=== PATIENT | female | born 1970 | race Caucasian/White ===

== ENCOUNTER 2023-07-20 01:31 | Emergency (ER) | payer BC ==
[2023-07-20] MEDS ORDERED: HYDROmorphone 1 MG/ML Syringe IVPUSH ONE (01:52)
[2023-07-20] MEDS ORDERED: Ondansetron 4 MG/2 ML SDV IVPUSH ONE (01:52)
[2023-07-20] MEDS ORDERED: Sodium Chloride 0.9% 1,000 ML IV ONE (01:52)
[2023-07-20] MEDS ORDERED: Sodium Chloride 0.9% 10 ML Syringe FLUSH PRN (01:52)
[2023-07-20 02:04] LABS: BASOPHILS PERCENT AUTO 0.1 % (0.0-1.0); EOSINOPHILS PERCENT AUTO 0.1 % (1.0-3.0); HEMATOCRIT 43.1 % (37.0-47.0); LYMPHOCYTES PERCENT AUTO 25.4 % (20.5-50.1); MEAN CORPUSCULAR HEMOGLOBIN 27.9 pg (27.0-34.0); MEAN CORPUSCULAR HGB CONC 32.5 g/dL (33.0-35.0); MEAN CORPUSCULAR VOLUME 85.9 fL (80-100); MONOCYTES PERCENT AUTO 9.7 % (2-8); NEUTROPHILS PERCENT AUTO 64.7 % (42.2-75.2); PLATELET COUNT,PLT 252 10^3/uL (150-450); RED BLOOD CELL COUNT 5.02 10^6/uL (4.2-5.4); WHITE BLOOD CELL COUNT,WBC 6.9 10^3/uL (5.0-10.0)
[2023-07-20 02:27] LABS: A/G RATIO 0.9; ALANINE AMINOTRANSFERASE,ALT 31 U/L (14-59); ALBUMIN 3.7 g/dL (3.4-5.0); ALKALINE PHOSPHATASE 128 U/L (46-116); AMYLASE 39 U/L (25-115); ASPARTATE AMNIOTRANSFERASE,AST 26 U/L (15-37); BILIRUBIN TOTAL 0.4 mg/dL (0.2-1.0); BLOOD UREA NITROGEN,BUN 18 mg/dL (7-18); BUN/CREATININE RATIO 22.2 (No establ ref range); CALCIUM 8.4 mg/dL (8.5-10.1); CARBON DIOXIDE,CO2 29 mmol/L (21-32); CHLORIDE,CL 103 mmol/L (98-107); CREATININE 0.81 mg/dL (0.55-1.02); EST CRCL DRUG DOSING (CG) 72.28 mL/min; GLUCOSE RANDOM 107 mg/dL (70-99); LIPASE 30 U/L (16-77); MAGNESIUM 1.7 mg/dL (1.8-2.4); PROTEIN TOTAL,TP 7.9 g/dL (6.4-8.2); SODIUM,NA 141 mmol/L (136-145)
[2023-07-20 02:28] LABS: PROTHROMBIN TIME 9.9 SEC (9.0-12.0); PTT,PARTIAL THROMBOPLSTIN TIME 28.1 SEC (22.0-34.0)
[2023-07-20 02:30] LABS: LACTIC ACID 0.8 mmol/L (0.4-2.0)
[2023-07-20 02:34] LABS: C-REACTIVE PROTEIN < 0.50 ng/dL (<=0.50); ESTIMATED GFR 87 mL/min (>=60)
[2023-07-20] MEDS ORDERED: fentaNYL 100 MCG/2 ML SDV IVPUSH ONE (02:39)
[2023-07-20] MEDS ORDERED: Naloxone 2 MG/2 ML Syringe IVPUSH PRN (02:39)
[2023-07-20] MEDS ORDERED: Iopamidol 612 MG/ML 100 ML Bottle IVPUSH ONE (02:39)
[2023-07-20 03:23] LABS: APPEARANCE,URINE CLEAR (CLEAR); BILIRUBIN,URINE NEGATIVE (NEGATIVE); COLOR,URINE YELLOW (YELLOW); GLUCOSE,URINE NEGATIVE (NEGATIVE); KETONES,URINE NEGATIVE (NEGATIVE); LEUKOCYTE ESTERASE,URINE NEGATIVE (NEGATIVE); NITRITE,URINE NEGATIVE (NEGATIVE); OCCULT BLOOD,URINE TRACE-INTACT (NEGATIVE); PROTEIN,URINE NEGATIVE (NEGATIVE); UROBILINOGEN,URINE 0.2 mg/dL (0.2-1.0)
[2023-07-20 03:26] LABS: AMPHETAMINES,URINE NEGATIVE (NEGATIVE); BARBITURATES,URINE NEGATIVE (NEGATIVE); BENZODIAZEPINE,URINE POSITIVE (NEGATIVE); MDMA (ECSTASY), URINE NEGATIVE (NEGATIVE); METHADONE,URINE NEGATIVE (NEGATIVE); METHAMPHETAMINES,URINE NEGATIVE (NEGATIVE); OPIATES,URINE NEGATIVE (NEGATIVE); OXYCODONE,URINE NEGATIVE (NEGATIVE); PHENCYCLIDINE,URINE NEGATIVE (NEGATIVE); TCA,URINE NEGATIVE (NEGATIVE)
[2023-07-20 03:43] LABS: BACTERIA,URINE MODERATE /HPF (0-FEW/HPF); EPITHELIAL CELLS,URINE MODERATE /HPF (NOT SEEN); MUCUS,URINE RARE /LPF (NOT SEEN); WBC,URINE 0-5 /HPF (0-5/HPF)
== END 2023-07-20 07:24 | disposition home or self-care (01) ==
LOC: DL.ED 01:31
DX: K42.9 Umbilical hernia without obstruction or gangrene (principal); K52.9 Noninfective gastroenteritis and colitis, unspecified; Z91.048 Other nonmedicinal substance allergy status
CPT/HCPCS: 36415; 74177; 80053; 80305-QW; 81001; 81025; 82150; 83605; 83690; 83735; 84145; 85025; 85610; 85730; 86140; 87040; 96361; 96374; 96375; 99284; 99284-25; J1170; J2405; J3010; J3490; J7030; Q9967